=== PATIENT | female | born 1950 | race Caucasian/White ===

== ENCOUNTER 2023-06-09 20:49 | Inpatient (IN) ==
[2023-06-09] MEDS ORDERED: IOPAMIDOL 100 ML BOTTLE IV ONE (20:50)
[2023-06-09] MEDS ORDERED: 0.9 % SODIUM CHLORIDE 1,000 ML IV ONE (21:01)
[2023-06-09 21:43] LABS: POC Calcium, Ionized 0.95 (1.16-1.32); POC Creatinine 0.4 (0.6-1.2); POC Potassium 3.3 (3.3-5.1)
[2023-06-09 22:10] LABS: Basophils # (Auto) 0.01 K/mcL (0.00-0.30); Basophils % (Auto) 0.3 % (0.0-2.0); Eosinophils # (Auto) 0 K/mcL (0.00-0.70); Eosinophils % (Auto) 0 % (0.0-7.0); Hematocrit 40.4 % (34.1-44.9); Hemoglobin 14.1 g/dL (11.2-15.7); Lymphocytes % (Auto) 15.9 % (15.5-49.0); Mean Cell Volume 91.8 fL (80.0-100.0); Mean Corpuscular HGB Conc 34.9 g/dL (31.0-36.0); Mean Platelet Volume 9.7 fL (8.8-12.5); Monocytes # (Auto) 0.35 K/mcL (0.10-0.90); Monocytes % (Auto) 9.3 % (1.0-12.0); Neutrophils % (Auto) 73.2 % (38.0-78.0); Platelet Count 211 K/mcL (140-440); Red Cell Distribution Width 12.8 % (11.5-14.5); WBC 3.8 K/mcL (4.5-11.0)
[2023-06-09 22:30] LABS: ALT/SGPT 15 U/L (<40); AST/SGOT 29 U/L (<32); Albumin 3.3 gm/dL (3.2-5.2); Alkaline Phosphatase 88 U/L (39-117); Bilirubin,Direct < 0.2 mg/dL (0-0.3); Bilirubin,Total 0.4 mg/dL (0.1-1.0); Globulin 3.5 gm/dL (2.2-3.7)
[2023-06-10] MEDS ORDERED: cefTRIAXone 1 GM in DEXTROSE 5% IN WATER 50 ML IV ONE (00:32)
[2023-06-10] MEDS ORDERED: AZITHROMYCIN 500 MG in DEXTROSE 5% IN WATER 250 ML IV ONE (00:32)
[2023-06-10] MEDS ORDERED: 0.9 % SODIUM CHLORIDE 1,000 ML IV ONE (00:37)
[2023-06-10] MEDS ORDERED: ONDANSETRON 4 MG/2 ML VIAL IV PRN ×2 (01:59→09:53)
[2023-06-10] MEDS ORDERED: ACETAMINOPHEN 325 MG TABLET PO PRN (02:14)
[2023-06-10] MEDS ORDERED: IBUPROFEN 600 MG TABLET PO PRN (02:14)
[2023-06-10] MEDS ORDERED: CALCIUM CARBONATE 500 MG TAB.CHEW CHEWED PRN (02:14)
[2023-06-10] MEDS ORDERED: DEXAMETHASONE 10 MG/ML VIAL IV ONE (05:31)
[2023-06-10] MEDS: 0.9 % SODIUM CHLORIDE 10 ML SYRINGE IV SCH ×4 (06:04→22:01)
[2023-06-10] MEDS ORDERED: DOCUSATE SODIUM 100 MG CAPSULE PO SCH (09:00)
[2023-06-10] MEDS ORDERED: CARBOXYMETHYLCELLULOSE SODIUM 1 EACH DROPER.GEL OP PRN (09:53)
[2023-06-10] MEDS ORDERED: IPRATROPIUM/ALBUTEROL 3 ML AMPUL.NEB NEB PRN (09:53)
[2023-06-10] MEDS ORDERED: guaiFENesin/DEXTROMETHORPHAN 5ML UD CUP PO PRN (09:53)
[2023-06-10] MEDS ORDERED: REMDESIVIR 200 MG in 0.9 % SODIUM CHLORIDE 250 ML IV SCH (10:30)
[2023-06-10] MEDS: DULoxetine 30 MG CAPSULE PO SCH (10:54)
[2023-06-10] MEDS: amLODIPine 5 MG TABLET PO SCH (10:55)
[2023-06-10] MEDS: ENOXAPARIN 40 MG/0.4 ML SYRINGE SQ SCH (10:55)
[2023-06-10] MEDS: LEVOTHYROXINE 125 MCG TABLET PO SCH (10:55)
[2023-06-10] MEDS: POTASSIUM CHLORIDE 20 MEQ TABLET PO SCH (17:41)
[2023-06-10] MEDS: SENNOSIDES 1 TABLET PO SCH ×2 (19:25)
[2023-06-10] MEDS: DOCUSATE SODIUM 100 MG CAPSULE PO SCH (19:25)
[2023-06-10] MEDS: traZODone HCL 150 MG TABLET PO SCH (22:01)
[2023-06-11] MEDS: 0.9 % SODIUM CHLORIDE 10 ML SYRINGE IV SCH ×3 (04:19→21:04)
[2023-06-11 07:53] LABS: Basophils # (Auto) 0.02 K/mcL (0.00-0.30); Basophils % (Auto) 0.4 % (0.0-2.0); Eosinophils # (Auto) 0 K/mcL (0.00-0.70); Eosinophils % (Auto) 0 % (0.0-7.0); Hematocrit 40.6 % (34.1-44.9); Hemoglobin 13.2 g/dL (11.2-15.7); Lymphocytes # (Auto) 0.69 K/mcL (1.50-4.80); Mean Cell Volume 95.3 fL (80.0-100.0); Mean Corpuscular HGB Conc 32.5 g/dL (31.0-36.0); Mean Platelet Volume 9.6 fL (8.8-12.5); Monocytes # (Auto) 0.33 K/mcL (0.10-0.90); Monocytes % (Auto) 6.2 % (1.0-12.0); Neutrophils % (Auto) 79.1 % (38.0-78.0); Platelet Count 236 K/mcL (140-440); RBC 4.26 M/mcL (3.59-5.38); Red Cell Distribution Width 12.6 % (11.5-14.5); WBC 5.3 K/mcL (4.5-11.0)
[2023-06-11] MEDS: LEVOTHYROXINE 125 MCG TABLET PO SCH (08:08)
[2023-06-11] MEDS: POTASSIUM CHLORIDE 20 MEQ TABLET PO SCH ×2 (08:09→17:35)
[2023-06-11 08:25] LABS: ALT/SGPT 14 U/L (<40); AST/SGOT 21 U/L (<32); Albumin/Globulin Ratio 0.9 (1.0-2.3); Alkaline Phosphatase 78 U/L (39-117); Bilirubin,Total 0.3 mg/dL (0.1-1.0); Blood Urea Nitrogen 9 mg/dL (8-23); Calcium 8.6 mg/dL (8.6-10.4); Carbon Dioxide 25 mmol/L (22-30); Chloride 103 mmol/L (96-108); Globulin 3.5 gm/dL (2.2-3.7); Glomerular Filtration Rate 96; Glucose 97 mg/dL (70-105)
[2023-06-11] MEDS: DULoxetine 30 MG CAPSULE PO SCH (09:25)
[2023-06-11] MEDS: DEXAMETHASONE 4 MG TABLET PO SCH (09:25)
[2023-06-11] MEDS: ENOXAPARIN 40 MG/0.4 ML SYRINGE SQ SCH (09:25)
[2023-06-11] MEDS: amLODIPine 5 MG TABLET PO SCH (09:26)
[2023-06-11] MEDS: cefTRIAXone 1 GM VIAL IV SCH (09:35)
[2023-06-11] MEDS: AZITHROMYCIN 500 MG in DEXTROSE 5% IN WATER 250 ML IV SCH ×2 (09:36→10:23)
[2023-06-11] MEDS: REMDESIVIR 100 MG in 0.9 % SODIUM CHLORIDE 250 ML IV SCH (09:37)
[2023-06-11] MEDS: DOCUSATE SODIUM 100 MG CAPSULE PO SCH ×2 (09:49→21:04)
[2023-06-11] MEDS: traZODone HCL 150 MG TABLET PO SCH (21:03)
[2023-06-11] MEDS: SENNOSIDES 1 TABLET PO SCH ×2 (21:03)
[2023-06-12] MEDS: 0.9 % SODIUM CHLORIDE 10 ML SYRINGE IV SCH (05:13)
[2023-06-12] MEDS: POTASSIUM CHLORIDE 20 MEQ TABLET PO SCH (07:14)
[2023-06-12] MEDS: LEVOTHYROXINE 125 MCG TABLET PO SCH (07:14)
[2023-06-12 07:31] LABS: Basophils # (Auto) 0.02 K/mcL (0.00-0.30); Basophils % (Auto) 0.3 % (0.0-2.0); Eosinophils # (Auto) 0 K/mcL (0.00-0.70); Eosinophils % (Auto) 0 % (0.0-7.0); Hematocrit 37.7 % (34.1-44.9); Hemoglobin 13.1 g/dL (11.2-15.7); Lymphocytes # (Auto) 0.69 K/mcL (1.50-4.80); Mean Cell Volume 92.4 fL (80.0-100.0); Mean Corpuscular HGB Conc 34.7 g/dL (31.0-36.0); Monocytes # (Auto) 0.39 K/mcL (0.10-0.90); Monocytes % (Auto) 6.8 % (1.0-12.0); Neutrophils % (Auto) 79.5 % (38.0-78.0); Platelet Count 281 K/mcL (140-440); RBC 4.08 M/mcL (3.59-5.38); Red Cell Distribution Width 12.7 % (11.5-14.5); WBC 5.8 K/mcL (4.5-11.0)
[2023-06-12 07:54] LABS: ALT/SGPT 11 U/L (<40); AST/SGOT 20 U/L (<32); Albumin 2.9 gm/dL (3.2-5.2); Albumin/Globulin Ratio 0.9 (1.0-2.3); Alkaline Phosphatase 75 U/L (39-117); Bilirubin,Total 0.3 mg/dL (0.1-1.0); Blood Urea Nitrogen 10 mg/dL (8-23); Calcium 8.4 mg/dL (8.6-10.4); Carbon Dioxide 24 mmol/L (22-30); Chloride 106 mmol/L (96-108); Globulin 3.3 gm/dL (2.2-3.7); Glomerular Filtration Rate 96; Glucose 80 mg/dL (70-105)
[2023-06-12] MEDS: DOCUSATE SODIUM 100 MG CAPSULE PO SCH (09:01)
[2023-06-12] MEDS: ENOXAPARIN 40 MG/0.4 ML SYRINGE SQ SCH (09:01)
[2023-06-12] MEDS: cefTRIAXone 1 GM VIAL IV SCH (09:01)
[2023-06-12] MEDS: DEXAMETHASONE 4 MG TABLET PO SCH (09:01)
[2023-06-12] MEDS: DULoxetine 30 MG CAPSULE PO SCH (09:01)
[2023-06-12] MEDS: amLODIPine 5 MG TABLET PO SCH (09:01)
[2023-06-12] MEDS: AZITHROMYCIN 500 MG in DEXTROSE 5% IN WATER 250 ML IV SCH (09:02)
[2023-06-12] MEDS: REMDESIVIR 100 MG in 0.9 % SODIUM CHLORIDE 250 ML IV SCH (10:25)
== END 2023-06-12 13:05 | disposition home or self-care (01) | DRG 177 ==
LOC: ED 20:49 → MEDSUR 06-10 07:08
PROVIDERS: ADMIT Internal Medicine; ATTEND Internal Medicine